=== PATIENT | female | born 2005 | race Caucasian/White ===

== ENCOUNTER 2025-01-28 14:28 | Emergency (ER) | payer BC, SELFPAY ==
[2025-01-28] VITALS (7 sets, daily range): BP systolic 100–126; BP diastolic 67–90; PULSE 109–123; RESP 20–30; TEMP 36.9–37.2; O2SAT 96–99; BMI 17.2; BMI 16.4
--- NOTE | ~2025-01-28 | CT_ITS ---
CLINICAL HISTORY: sob Exam: Contrast-enhanced chest CT pulmonary angiogram with multiplanar reformats. Comparison: None. Findings: There is no pulmonary embolism or thoracic aortic dissection. Right-sided subcarinal nodes measuring up to 13 mm AP dimension (8; 196) are likely reactive. Mildly prominent right hilar nodes measuring up to 10 mm AP dimension (8; 224) are likely reactive as well. No other mediastinal or hilar masses or adenopathy. No pleural or pericardial effusions. Images below diaphragms reveal no acute abnormalities. Lungs reveal patchy right lower lobe consolidative opacity with multifocal lucencies (for example, 10; 99), suggesting some underlying bronchiectasis although differential considerations would include coalescing multifocal cavitary lesions which appear less likely. Findings most compatible with right lower lobe pneumonia. There are lesser patchy right lower lobe ground-glass and centrilobular opacities as well. Hyperenhancement of the posteromedial aspect of the right lower lobe compared with the more lateral aspect of the right lower lobe (8; 344), could suggest necrotizing pneumonia. There are minimal scattered patchy centrilobular ground-glass opacities within right upper lobe (10; 39), also suggesting mild aspiration or developing right upper lobe pneumonia as well. No other dori consolidation or pulmonary parenchymal lesions. Airways are patent. No pneumothorax. Osseous structures reveal no destructive osseous lesions. Impression: 1. No pulmonary embolism or aortic dissection. 2. Dense consolidative opacity within right lower lobe with some areas of hyperenhancement, suggesting pneumonia and worrisome for necrotizing pneumonia. Multifocal lucencies within the right lower lobe consolidation could be related to bronchiectasis versus multifocal areas of cavitation within right lower lobe. There are lesser right upper lobe centrilobular opacities concerning for pneumonia or mild right upper lobe aspiration. This document has been electronically signed by: Edouard Da Silva MD on 01/28/2025 17:58:15
--- NOTE | ~2025-01-28 | XR_ITS ---
CLINICAL HISTORY: dyspnea 1 view chest x-ray. Comparison: None Findings: Lungs reveal medial right lung base consolidation. No other consolidation or pleural effusions. Cardiac and mediastinal contours appear unremarkable. Bones unremarkable. Impression: 1. Medial right lung base consolidation/pneumonia. This document has been electronically signed by: Edouard Da Silva MD on 01/28/2025 15:30:27
--- OUTSIDE RECORDS SUMMARY | 2025-01-28 14:23 | XMS_ITS | Encounter Summary ---
Author Organization [facility] Address [address] [place] [id number] Phone Care Team Providers Care Diagnostic Technologist Name Role Phone Karolyn Almanza MD Primary Care Provider [phone] Reason for Visit * Reason Comments ED Admission Encounter Details Date Type Department Care Team (Yoel st Contact Info) Description 01/28/2025 2:23 PM EST - Present Emergency - Patient Ping Social History Tobacco Use Types Packs/Day Years Used Date Smoking Tobacco: Never Smokeless Tobacco: Never Alcohol Use Standard Drinks/Week Comments Never 0 (1 standard drink = 0.6 oz pur e alcohol) Hunger/Food Answer Date Recorded In the last 12 months, did y ou or your family ever eat less than you felt you should because there wasn't enough money for food? No 09/22/2023 Stable Housing Answer Date Recorded Are you worried that in the next 2 months you may not have stable housing? No 09/22/2023 Transportation Concerns Answer Date Rec orded In the last 12 months, have you or your family ever had to go without healthcare because you didn't have a way to get there? No 09/22/2023 Hazards in Home Answer Date Recorded Think about the place you li ve. Do you have problems with any of the following? Pests (mice or roaches), mold, no/not working smoke detectors, water leaks, no window guards. No 2023 Financing Utilities Answer Date Recorde d In the last 12 months, has t he electric, gas, oil, or water company threatened to shut off your services in your home? No 09/22/2023 Safety at Home Answer Date Recorded Are you or your family worried about feeling saf e in your home? No 09/22/2023 Outside Support Answer Date Recorded Do you feel that you need mo re support from other people or programs to help you care for yourself or your family? No 09/22/2023 Understanding Health Concerns Answer Da te Recorded Do you need help understandi ng your or your child's healthcare needs (diagnosis, medications, plan, etc.)? No 09/22/2023 Financing Health Concerns Answer Date R ecorded In the last 12 months, was t here a time when your child needed to see a doctor or get medications or supplies but could not because of cost? No 09/22/2023 Missing School or Work Answer Date Romaine rded Did you or your child miss s chool or work because of a health problem that could have been avoided? No 09/22/2023 Child Education Answer Date Recorded Do you have concerns about y our/your child's learning or behavior in school, preschool, or daycare? No 09/22/2023 Comments No Sex and Gender Information Value Date Recorded Sex Assigned at Female 09/22/2023 8:31 AM EDT Legal Sex Female 5:08 PM EDT Gender Identity Female 09/22/2023 8:31 AM EDT Sexual Orientation Straight 09/22/2023 8: 31 AM EDT documented as of this encounter Plan of Treatment Not on file documented as of this encounter Visit Diagnoses Not on filedocumented in this encounter Care Teams Diagnostic Technologist Relationship Specialty Start Date End Date Karolyn Almanza MD [address] [place] [address] PCP - General Pediatrics 11/24/19 documented as of this encounter
--- NOTE | 2025-01-28 15:22 | ECG_ITS ---
Test Reason : tachy Blood Pressure : */* mmHG Vent. Rate : 110 BPM Atrial Rate : 110 BPM P-R Int : 306 ms QRS Dur : 100 ms QT Int : 238 ms P-R-T Axes : 68 52 251 degrees QTcB Int : 322 ms Sinus tachycardia with 1st degree A-V block Right atrial enlargement Marked ST abnormality, possible inferior subendocardial injury Marked ST abnormality, possible anterolateral subendocardial injury Consider electrolyte imbalance. Abnormal ECG No previous ECGs available Referred By: Generic ED Physician Electronically Signed By: Juan Ramon
[2025-01-28 15:41] LABS: Magnesium 2.5 mg/dL (1.6-2.6)
[2025-01-28 15:42] LABS: Hematocrit 41.7 % (37.0-47.0); Hemoglobin 15.5 g/dl (12.0-16.0); Mean Corpuscular HGB Conc 37.2 g/dl (31.0-35.0); Mean Corpuscular Hemoglobin 32.8 pg (27.0-33.0); Mean Corpuscular Volume 88.2 fL (80.0-98.0); NRBC Abs Auto 0.030 X10*3/uL (0.0-0.012); NRBC Pct Auto 0.1 /100WBC (0.0-0.2); Platelet Count 653 X10*3/uL (160-400); Red Blood Count 4.73 X10*6/uL (4.20-5.50)
[2025-01-28 15:47] LABS: WBC ABN SCTR FOR CBC 1
[2025-01-28 15:50] LABS: White Blood Count 34.5 X10*3/uL (4.8-10.8)
--- NOTE | 2025-01-28 15:56 | ED.GENADULT ---
HPI - General Adult General Chief complaint: Dyspnea Stated complaint: coming from , diff breathing, cough x5 days Time Seen by Provider: 01/28/25 15:08 Source: patient and family Mode of arrival: ambulatory Limitations: no limitations History of Present Illness ED Provider: DENNY Vale HPI narrative: Chief Complaint: ?I feel really tired and short of breath.? History of Present Illness: The patient is a 19-year-old female who reports five days of increasing fatigue, malaise, diffuse myalgias, and shortness of breath. She notes markedly decreased oral intake and states, ?I haven?t been able to eat or drink much.? Her roommate was recently diagnosed with pneumonia. Over the last day she has been unable to ambulate due to profound weakness and required wheelchair assistance on arrival. She denies any known past medical history. No alcohol, tobacco, or illicit drug use. She was told to come here by Urgent Care Related Data Allergies Allergy/AdvReac Type Severity Reaction Status Date / Time No Known Allergies Allergy Verified 01/28/25 14:48 Review of Systems Review of Systems: Yes all other systems are reviewed and are negative [facility] Past Medical History Attestation statement: The following information was validated with the patient. Source: old records reviewed and nursing notes reviewed Social History Social History Smoked in Last 30 Days: No Use of substances other than those prescribed or required for medical reasons: No Advance Directives: No Advance Directives Information Provided: No Physical Exam ED Exam Exam: Appearance: Alert.? Oriented X3.? Ill appearing Head: Normocephalic, atraumatic, no step-offs or deformities Eyes: Pupils equal, round and reactive to light.? ENT: Pharynx normal.?+ Dry oropharynx Neck: Normal inspection.? Neck supple.? CVS: Rapid rate w/ normal rythem ? sinus tach around 110 bpm.? Pulses normal.? Respiratory: + mild resp distress.? Breath sounds w/ crackles to RLL. Coughing intermittently dry cough ? Abdomen: Soft and nontender.? Skin: Skin warm and dry.? Pale skin color & mucus membranes pale.? Normal skin turgor.? Extremities: No lower extremity edema.? No calf ttp. Global weakness. Back: No midline tenderness, no C-spine tenderness, full range of motion, no CVA tenderness bilaterally Neuro: Oriented X 3.? No motor deficit.? No sensory deficit. CN 2-12 intact Vital Signs: Vital Signs - 24 hr 01/28/25 14:46 01/28/25 15:27 01/28/25 16:37 Temperature 98.9 F 98.4 F Pulse Rate 114 H 112 H 112 H Respiratory Rate 20 20 24 H Blood Pressure 118/79 121/78 118/73 Pulse Oximetry 97 96 97 Oxygen Delivery Method Room Air Room Air Room Air 01/28/25 17:26 01/28/25 18:02 01/28/25 19:53 Temperature 98.4 F Pulse Rate 113 H 123 H 109 H Respiratory Rate 26 H 30 H 24 H Blood Pressure 118/80 100/67 110/67 Pulse Oximetry 99 97 97 Oxygen Delivery Method Room Air Room Air Room Air BMI result Body Mass Index 16.4 vss Course Reevaluation(s) Reevaluation #1: Patient's chest x-ray concerning for right middle lobe pneumonia she does have leukocytosis 34.5 with left shift and bandemia of 17% platelet count 653 likely in the setting of hemoconcentration poor p.o. intake and infection. Patient's chemistry with low sodium 129 she is receiving IV hydration potassium 2.4 IV potassium ordered as well as po. Random glucose 465 she is not diabetic per patient and motther. Will initially give fluids will also obtain a beta hydroxybutyrate as well as VBG to ensure that this patient is not in new onset diabetes with possible DKA At this time infection suspected blood cultures lactic acid ceftriaxone and azithromycin ordered. Time: 16:05 Reevaluation #2: Sepsis focused exam has been done Her labs are significantly concerning for diabetic ketoacidosis, I did start on insulin drip will repeat point of care will also give 5 units IV push. Also, will check magnesium before replacing potassium. Time: 16:55 Reevaluation #3: I called the lab multiple times as magnesium has been delayed. I explained to them this patient is very sick and I need values elmer. Still waiting for results. I am also concered for profund lactic acidosis with a nearly incompatible PH 6.8 and amp of bicarb ordered Time: 17:14 Additional Reevaluation(s): 1724 Lab tells me her value has been back for a while. Mag 2.5. Will begin K repletion prior to initiating insulin as her potassium level is critically low 1750 No ICU beds here at this times. 1808 Accepted to [facility]. Lundberg Recommendations as follows .1 units/kg/ hour --> order placed NS w/ 20 or 40 of K run it at 150 /hr w/ insulin drip. --> we will do NS w/ 20 meq in normal saline and rune it at 150/hr. Sugars q hour --> POC 378 at 1816 If glucose < 250 start D5 1840 Paient has been accepted at [facility]. Pending transpot and room assignment. My shift has come to an end. Dr. Mariee my attenidng to take over this case. Pending repeat imaging Medications Administered Discontinued Medications Generic Name Dose Route Start Last Admin Trade Name Freq PRN Reason Stop Dose Admin Sodium Chloride 1,360.77 mls @ 1,360.77 mls/hr 01/28/25 15:36 01/28/25 17:21 Ns 30 ml/kg infuse over 1 hr (1360.77 ml) 01/28/25 16:35 Infused IV Infusion .Q1H STA Ceftriaxone Sodium 1 gm/ 50 mls @ 100 mls/hr 01/28/25 15:36 01/28/25 17:11 Sodium Chloride IV 01/28/25 16:05 Infused ONCE ONE Infusion Azithromycin 500 mg/ Sodium 250 mls @ 125 mls/hr 01/28/25 16:03 01/28/25 18:33 Chloride IV 01/28/25 18:02 0 mls/hr ONCE ONE Infusion Potassium Chloride 10 meq in 100 mls @ 100 mls/hr 01/28/25 16:15 01/28/25 19:49 Potassium Chloride/H20 IV 01/28/25 18:14 Infused Q1H FAUSTINA Infusion Sodium Chloride 1,000 mls @ 999 mls/hr 01/28/25 17:15 01/28/25 19:23 Ns IV 01/28/25 18:15 Infused .Q1H1M [facility] Infusion Insulin Human Regular 100 unit in 100 mls @ 0 mls/hr 01/28/25 18:15 01/28/25 19:51 Myxredlin IVCONT 0 unit/hr .Q0M FAUSTINA 0 mls/hr Protocol Titration 0 UNIT/HR Iohexol 100 ml 01/28/25 16:57 01/28/25 17:01 Iohexol 350 Mg/Ml 100 Ml Infus..Btl IV 01/28/25 16:58 65 ml ONCE ONE Administration Potassium Chloride 40 meq 01/28/25 16:08 01/28/25 17:19 Potassium Chloride Packet 20 Meq Packet PO 01/28/25 16:09 40 meq ONCE ONE Administration Sodium Bicarbonate 50 meq 01/28/25 17:22 01/28/25 17:29 Sodium Bicarbonate 8.4% 50 Meq/50 Ml Syringe IVPUSH 01/28/25 17:23 50 meq ONCE ONE Administration Medical Decision Making Medical Decision Making [facility] Narrative: 0779 The patient is a 19-year-old female presenting with five days of progressive systemic symptoms, vital sign instability (tachycardia), focal pulmonary findings, and overall ill appearance concerning for sepsis likely secondary to right lower lobe pneumonia. Problem #1: Sepsis ? suspected Assessment: Meets sepsis alert criteria with tachycardia, ill appearance, and history of decreased oral intake; requires immediate evaluation. Plan: Sepsis alert activated. Obtain STAT blood cultures ?2, CBC, CMP, lactic acid. Problem #2: Right lower lobe pneumonia ? suspected Assessment: History of exposure (roommate with pneumonia), focal crackles RLL on exam, compatible symptoms. Plan: Chest X-ray to confirm infiltrate. Patient was put into RP temprarily after being brought by EMS due to capacity issues in the dept--> I do not feel like this is appropriate as she needs monitored room, asked for her to be put in the main ED given her presentation. Charge Candy aware and moved patient to monitored room upon request. I saw this patient with PA. Patient was in severe diabetic ketoacidosis likely from pneumonia. Patient's pH was extremely low. 6.8. Reluctantly we give a amp of bicarb. Patient also had extremely low potassium. We held back initially on giving insulin because patient's potassium was at 2.4 beta hydroxybutyrate was 8.25. After consultation with the ICU from [facility] after repletion with potassium started patient on insulin drip. Antibiotic was given. Patient to be transferred to the ICU at [facility]. Differential Diagnosis Differential Diagnoses: The differential diagnosis associated with the presentation includes Community-acquired pneumonia: Most likely diagnosis given recent exposure (roommate with pneumonia), focal right lower lobe crackles, and compatible systemic symptoms. Viral respiratory infection (e.g., influenza, COVID-19, EBV/CMV): Considered due to acute onset of fatigue, myalgias, and respiratory complaints; viral etiologies can present similarly. Sepsis of other origin (e.g., urinary tract, intra-abdominal): Systemic symptoms and tachycardia raise concern for sepsis; other infectious sources should be considered if initial workup is unrevealing. Acute myocarditis: Can present with fatigue, weakness, tachycardia, and respiratory symptoms; less likely but should be considered in the differential. Primary hematologic disorder (e.g., acute leukemia, severe anemia): Global weakness, pallor, and inability to ambulate may be seen in severe anemia or hematologic malignancy. Other causes of acute weakness (e.g., Guillain-Gtz? syndrome, myositis): Neuromuscular etiologies may present with profound weakness and inability to ambulate, though less likely given systemic findings. Pulmonary embolism: Less likely, but should be considered in the setting of tachycardia and hypoxia, especially if initial workup is unrevealing. Admission/Observation Consideration of admission/observation: Escalation of care including admission/observation considered Consult Healthcare Provider Management of the patient was discussed with: Sr Technical Sales Consultant (ICU closed to transfers due to capacity here [facility] ) Lab Data MDM Lab Attestation statement: I reviewed the patient's lab results. 01/28/25 15:22 01/28/25 15:22 Labs: Lab Results 01/28/25 01/28/25 01/28/25 Range/Units 15:20 15:22 16:18 WBC 34.5 H* (4.8-10.8) X10*3/uL RBC 4.73 (4.20-5.50) X10*6/uL Hgb 15.5 (12.0-16.0) g/dl Hct 41.7 (37.0-47.0) % MCV 88.2 (80.0-98.0) fL MCH 32.8 (27.0-33.0) pg MCHC 37.2 H (31.0-35.0) g/dl RDW 14.1 (11.0-16.0) % Plt Count 653 H (160-400) X10*3/uL MPV 8.9 L (9.4-12.3) fL Immature Gran % (Auto) Cancelled Neut % (Auto) Cancelled Lymph % (Auto) Cancelled [place] % (Auto) Cancelled Eos % (Auto) Cancelled Baso % (Auto) Cancelled Lymph # (Auto) Cancelled [place] # (Auto) Cancelled Eos # (Auto) Cancelled Baso # (Auto) Cancelled Abs Immat Gran (auto) Cancelled Absolute Neuts (auto) Cancelled Absolute Nucleated RBC 0.030 H (0.0-0.012) X10*3/uL Nucleated RBC % (auto) 0.1 (0.0-0.2) /100WBC Neutrophils % (Manual) 65 (45-73) % Band Neutrophils % 17 H (3-5) % Lymphocytes % (Manual) 7 L (20-40) % Atypical Lymphs % (Man) 2 (0-6) % Monocytes % (Manual) 6 (2-11) % Metamyelocytes % 3 % Abs Neuts (Manual) 28.3 H (2.0-8.3) X10*3/uL Lymphocytes # (Manual) 2.4 (1.2-4.9) X10*3/uL Atyp Lymphs # (Manual) 0.7 x10*3/uL Monocytes # (Manual) 2.1 H (0.1-1.2) X10*3/uL Metamyelocytes # 1.0 X10*3/uL Toxic Granulation PRESENT Toxic Vacuolation PRESENT Platelet Estimate INCREASED (NORMAL) Plt Morphology Comment NORMAL RBC Morphology NOTED Polychromasia 1+ (0-2) /OIF Tear Drop Cells 1+ (0-2) /OIF Yogi Cells 1+ (0-2) /OIF Hold Purple Top Hold Blue Top Cancelled VBG pH (7.32-7.43) VBG pCO2 mmHg VBG pO2 mmHg VBG HCO3 (22-26) mmol/L VBG O2 Saturation % VBG Base Excess mmol/L Sodium 129 L (135-145) mmol/L Potassium 2.4 L* (3.3-5.1) mmol/L Chloride 101 (96-108) mmol/L Carbon Dioxide < 5 L* (22-29) mmol/L Anion Gap TNP BUN 11 (9-16) mg/dL Creatinine 0.83 (0.5-1.4) mg/dL Estim Creat Clear Calc 78.0 Estimated GFR > 60 POC Glucose (60-115) mg/dL Random Glucose 465 H* (60-115) mg/dL Lactic Acid 3.1 H* (0.5-2.0) mmol/L Calcium 11.8 H (8.4-10.2) mg/dL Magnesium 2.5 (1.6-2.6) mg/dL Total Bilirubin 0.3 (0.0-1.0) mg/dL AST 18 (5-31) U/L ALT < 6 (0-31) U/L Alkaline Phosphatase 220 H (39-117) U/L Total Protein 8.8 H (6.5-8.0) g/dL Albumin 4.1 (3.5-5.0) g/dL Beta-Hydroxybutyrate (0.02-0.27) mmol/L Beta HCG, Quant < 2 mIU/mL Urine Color Urine Appearance Urine pH (5.0-9.0) Ur Specific [place] (1.005-1.025) Urine Protein (Neg-Trace) mg/dL Urine Glucose (UA) (Negative) mg/dL Urine Ketones (Negative) mg/dL Urine Blood (Negative) Urine Nitrite (Negative) Ur Leukocyte Esterase (Negative) Urine RBC (0-2) /HPF Urine WBC (0-5) /HPF Ur Squamous Epith Cells (0-2) /HPF Urine Bacteria (None Seen) Hyaline Casts (0-2) /LPF Urine Opiates Screen (Not Detect) Ur Buprenorphine Scrn (Not Detect) ng/mL Ur Oxycodone Screen (Not Detect) ng/mL Urine Methadone Screen (Not Detect) ng/mL Urine Fentanyl Screen (Not Detect) Ur Barbiturates Screen (Not Detect) Ur Phencyclidine Scrn (Not Detect) Ur Amphetamines Screen (Not Detect) U Benzodiazepines Scrn (Not Detect) Urine Cocaine Screen (Not Detect) U Marijuana (THC) Screen (Not Detect) Influenza Type A (PCR) NEGATIVE (Negative) Influenza Type B (PCR) NEGATIVE (Negative) RSV RNA Qual (PCR) NEGATIVE (Negative) SARS-CoV-2 RNA (RT-PCR) NEGATIVE (Negative) 01/28/25 01/28/25 01/28/25 Range/Units 16:27 16:28 16:36 WBC (4.8-10.8) X10*3/uL RBC (4.20-5.50) X10*6/uL Hgb (12.0-16.0) g/dl Hct (37.0-47.0) % MCV (80.0-98.0) fL MCH (27.0-33.0) pg MCHC (31.0-35.0) g/dl RDW (11.0-16.0) % Plt Count (160-400) X10*3/uL MPV (9.4-12.3) fL Immature Gran % (Auto) Neut % (Auto) Lymph % (Auto) [place] % (Auto) Eos % (Auto) Baso % (Auto) Lymph # (Auto) [place] # (Auto) Eos # (Auto) Baso # (Auto) Abs Immat Gran (auto) Absolute Neuts (auto) Absolute Nucleated RBC (0.0-0.012) X10*3/uL Nucleated RBC % (auto) (0.0-0.2) /100WBC Neutrophils % (Manual) (45-73) % Band Neutrophils % (3-5) % Lymphocytes % (Manual) (20-40) % Atypical Lymphs % (Man) (0-6) % Monocytes % (Manual) (2-11) % Metamyelocytes % % Abs Neuts (Manual) (2.0-8.3) X10*3/uL Lymphocytes # (Manual) (1.2-4.9) X10*3/uL Atyp Lymphs # (Manual) x10*3/uL Monocytes # (Manual) (0.1-1.2) X10*3/uL Metamyelocytes # X10*3/uL Toxic Granulation Toxic Vacuolation Platelet Estimate (NORMAL) Plt Morphology Comment RBC Morphology Polychromasia /OIF Tear Drop Cells /OIF [place] Cells /OIF Hold Purple Top SEE NOTE Hold Blue Top VBG pH 6.83 L* (7.32-7.43) VBG pCO2 23 mmHg VBG pO2 46 mmHg VBG HCO3 4 L (22-26) mmol/L VBG O2 Saturation 66.0 % VBG Base Excess -29.0 mmol/L Sodium (135-145) mmol/L Potassium (3.3-5.1) mmol/L Chloride (96-108) mmol/L Carbon Dioxide (22-29) mmol/L Anion Gap BUN (9-16) mg/dL Creatinine (0.5-1.4) mg/dL Estim Creat Clear Calc Estimated GFR POC Glucose (60-115) mg/dL Random Glucose (60-115) mg/dL Lactic Acid (0.5-2.0) mmol/L Calcium (8.4-10.2) mg/dL Magnesium (1.6-2.6) mg/dL Total Bilirubin (0.0-1.0) mg/dL AST (5-31) U/L ALT (0-31) U/L Alkaline Phosphatase (39-117) U/L Total Protein (6.5-8.0) g/dL Albumin (3.5-5.0) g/dL Beta-Hydroxybutyrate 8.25 H (0.02-0.27) mmol/L Beta HCG, Quant mIU/mL Urine Color Urine Appearance Urine pH (5.0-9.0) Ur Specific [place] (1.005-1.025) Urine Protein (Neg-Trace) mg/dL Urine Glucose (UA) (Negative) mg/dL Urine Ketones (Negative) mg/dL Urine Blood (Negative) Urine Nitrite (Negative) Ur Leukocyte Esterase (Negative) Urine RBC (0-2) /HPF Urine WBC (0-5) /HPF Ur Squamous Epith Cells (0-2) /HPF Urine Bacteria (None Seen) Hyaline Casts (0-2) /LPF Urine Opiates Screen (Not Detect) Ur Buprenorphine Scrn (Not Detect) ng/mL Ur Oxycodone Screen (Not Detect) ng/mL Urine Methadone Screen (Not Detect) ng/mL Urine Fentanyl Screen (Not Detect) Ur Barbiturates Screen (Not Detect) Ur Phencyclidine Scrn (Not Detect) Ur Amphetamines Screen (Not Detect) U Benzodiazepines Scrn (Not Detect) Urine Cocaine Screen (Not Detect) U Marijuana (THC) Screen (Not Detect) Influenza Type A (PCR) (Negative) Influenza Type B (PCR) (Negative) RSV RNA Qual (PCR) (Negative) SARS-CoV-2 RNA (RT-PCR) (Negative) 01/28/25 01/28/25 01/28/25 Range/Units 16:57 17:33 18:14 WBC (4.8-10.8) X10*3/uL RBC (4.20-5.50) X10*6/uL Hgb (12.0-16.0) g/dl Hct (37.0-47.0) % MCV (80.0-98.0) fL MCH (27.0-33.0) pg MCHC (31.0-35.0) g/dl RDW (11.0-16.0) % Plt Count (160-400) X10*3/uL MPV (9.4-12.3) fL Immature Gran % (Auto) Neut % (Auto) Lymph % (Auto) [place] % (Auto) Eos % (Auto) Baso % (Auto) Lymph # (Auto) [place] # (Auto) Eos # (Auto) Baso # (Auto) Abs Immat Gran (auto) Absolute Neuts (auto) Absolute Nucleated RBC (0.0-0.012) X10*3/uL Nucleated RBC % (auto) (0.0-0.2) /100WBC Neutrophils % (Manual) (45-73) % Band Neutrophils % (3-5) % Lymphocytes % (Manual) (20-40) % Atypical Lymphs % (Man) (0-6) % Monocytes % (Manual) (2-11) % Metamyelocytes % % Abs Neuts (Manual) (2.0-8.3) X10*3/uL Lymphocytes # (Manual) (1.2-4.9) X10*3/uL Atyp Lymphs # (Manual) x10*3/uL Monocytes # (Manual) (0.1-1.2) X10*3/uL Metamyelocytes # X10*3/uL Toxic Granulation Toxic Vacuolation Platelet Estimate (NORMAL) Plt Morphology Comment RBC Morphology Polychromasia /OIF Tear Drop Cells /OIF Yogi Cells /OIF Hold Purple Top Hold Blue Top VBG pH (7.32-7.43) VBG pCO2 mmHg VBG pO2 mmHg VBG HCO3 (22-26) mmol/L VBG O2 Saturation % VBG Base Excess mmol/L Sodium (135-145) mmol/L Potassium (3.3-5.1) mmol/L Chloride (96-108) mmol/L Carbon Dioxide (22-29) mmol/L Anion Gap BUN (9-16) mg/dL Creatinine (0.5-1.4) mg/dL Estim Creat Clear Calc Estimated GFR POC Glucose 377 H* 378 H* (60-115) mg/dL Random Glucose (60-115) mg/dL Lactic Acid (0.5-2.0) mmol/L Calcium (8.4-10.2) mg/dL Magnesium (1.6-2.6) mg/dL Total Bilirubin (0.0-1.0) mg/dL AST (5-31) U/L ALT (0-31) U/L Alkaline Phosphatase (39-117) U/L Total Protein (6.5-8.0) g/dL Albumin (3.5-5.0) g/dL Beta-Hydroxybutyrate (0.02-0.27) mmol/L Beta HCG, Quant mIU/mL Urine Color Yellow Urine Appearance Cloudy Urine pH 5.5 (5.0-9.0) Ur Specific [place] 1.020 (1.005-1.025) Urine Protein 100 (2+) H (Neg-Trace) mg/dL Urine Glucose (UA) >=1000 H (Negative) mg/dL Urine Ketones 80 (Negative) mg/dL Urine Blood Trace H (Negative) Urine Nitrite Negative (Negative) Ur Leukocyte Esterase Negative (Negative) Urine RBC 3-5 H (0-2) /HPF Urine WBC 0-5 (0-5) /HPF Ur Squamous Epith Cells 3-5 (0-2) /HPF Urine Bacteria 3+ (None Seen) Hyaline Casts 11-20 (0-2) /LPF Urine Opiates Screen Not Detected (Not Detect) Ur Buprenorphine Scrn Not Detected (Not Detect) ng/mL Ur Oxycodone Screen Not Detected (Not Detect) ng/mL Urine Methadone Screen Not Detected (Not Detect) ng/mL Urine Fentanyl Screen Not Detected (Not Detect) Ur Barbiturates Screen Not Detected (Not Detect) Ur Phencyclidine Scrn Not Detected (Not Detect) Ur Amphetamines Screen Not Detected (Not Detect) U Benzodiazepines Scrn Not Detected (Not Detect) Urine Cocaine Screen Not Detected (Not Detect) U Marijuana (THC) Screen Not Detected (Not Detect) Influenza Type A (PCR) (Negative) Influenza Type B (PCR) (Negative) RSV RNA Qual (PCR) (Negative) SARS-CoV-2 RNA (RT-PCR) (Negative) 12/14/25 12/14/25 Range/Units 19:07 19:20 WBC (4.8-10.8) X10*3/uL RBC (4.20-5.50) X10*6/uL Hgb (12.0-16.0) g/dl Hct (37.0-47.0) % MCV (80.0-98.0) fL MCH (27.0-33.0) pg MCHC (31.0-35.0) g/dl RDW (11.0-16.0) % Plt Count (160-400) X10*3/uL MPV (9.4-12.3) fL Immature Gran % (Auto) Neut % (Auto) Lymph % (Auto) [place] % (Auto) Eos % (Auto) Baso % (Auto) Lymph # (Auto) [place] # (Auto) Eos # (Auto) Baso # (Auto) Abs Immat Gran (auto) Absolute Neuts (auto) Absolute Nucleated RBC (0.0-0.012) X10*3/uL Nucleated RBC % (auto) (0.0-0.2) /100WBC Neutrophils % (Manual) (45-73) % Band Neutrophils % (3-5) % Lymphocytes % (Manual) (20-40) % Atypical Lymphs % (Man) (0-6) % Monocytes % (Manual) (2-11) % Metamyelocytes % % Abs Neuts (Manual) (2.0-8.3) X10*3/uL Lymphocytes # (Manual) (1.2-4.9) X10*3/uL Atyp Lymphs # (Manual) x10*3/uL Monocytes # (Manual) (0.1-1.2) X10*3/uL Metamyelocytes # X10*3/uL Toxic Granulation Toxic Vacuolation Platelet Estimate (NORMAL) Plt Morphology Comment RBC Morphology Polychromasia /OIF Tear Drop Cells /OIF Yogi Cells /OIF Hold Purple Top Hold Blue Top VBG pH (7.32-7.43) VBG pCO2 mmHg VBG pO2 mmHg VBG HCO3 (22-26) mmol/L VBG O2 Saturation % VBG Base Excess mmol/L Sodium Cancelled (135-145) mmol/L Potassium Cancelled (3.3-5.1) mmol/L Chloride Cancelled (96-108) mmol/L Carbon Dioxide Cancelled (22-29) mmol/L Anion Gap Cancelled BUN Cancelled (9-16) mg/dL Creatinine Cancelled (0.5-1.4) mg/dL Estim Creat Clear Calc Cancelled Estimated GFR Cancelled POC Glucose 320 H (60-115) mg/dL Random Glucose Cancelled (60-115) mg/dL Lactic Acid (0.5-2.0) mmol/L Calcium Cancelled (8.4-10.2) mg/dL Magnesium (1.6-2.6) mg/dL Total Bilirubin Cancelled (0.0-1.0) mg/dL AST Cancelled (5-31) U/L ALT Cancelled (0-31) U/L Alkaline Phosphatase Cancelled (39-117) U/L Total Protein Cancelled (6.5-8.0) g/dL Albumin Cancelled (3.5-5.0) g/dL Beta-Hydroxybutyrate (0.02-0.27) mmol/L Beta HCG, Quant mIU/mL Urine Color Urine Appearance Urine pH (5.0-9.0) Ur Specific [place] (1.005-1.025) Urine Protein (Neg-Trace) mg/dL Urine Glucose (UA) (Negative) mg/dL Urine Ketones (Negative) mg/dL Urine Blood (Negative) Urine Nitrite (Negative) Ur Leukocyte Esterase (Negative) Urine RBC (0-2) /HPF Urine WBC (0-5) /HPF Ur Squamous Epith Cells (0-2) /HPF Urine Bacteria (None Seen) Hyaline Casts (0-2) /LPF Urine Opiates Screen (Not Detect) Ur Buprenorphine Scrn (Not Detect) ng/mL Ur Oxycodone Screen (Not Detect) ng/mL Urine Methadone Screen (Not Detect) ng/mL Urine Fentanyl Screen (Not Detect) Ur Barbiturates Screen (Not Detect) Ur Phencyclidine Scrn (Not Detect) Ur Amphetamines Screen (Not Detect) U Benzodiazepines Scrn (Not Detect) Urine Cocaine Screen (Not Detect) U Marijuana (THC) Screen (Not Detect) Influenza Type A (PCR) (Negative) Influenza Type B (PCR) (Negative) RSV RNA Qual (PCR) (Negative) SARS-CoV-2 RNA (RT-PCR) (Negative) Independent Interpretation I performed an independent interpretation of an: Plain X-Ray (Sinus tachycardia with 1st degree A-V block Right atrial enlargement Marked ST abnormality, possible inferior subendocardial injury Marked ST abnormality, possible anterolateral subendocardial injury Abnormal ECG No previous ECGs available) and CT Scan Interpretation: Impression: 1. No pulmonary embolism or aortic dissection. 2. Dense consolidative opacity within right lower lobe with some areas of hyperenhancement, suggesting pneumonia and worrisome for necrotizing pneumonia. Multifocal lucencies within the right lower lobe consolidation could be related to bronchiectasis versus multifocal areas of cavitation within right lower lobe. There are lesser right upper lobe centrilobular opacities concerning for pneumonia or mild right upper lobe aspiration. Radiology Impression Discussion of test interpretation with radiology: I have reviewed the radiologist's reading. Independent Historian Clinical information obtained from an independent historian. History obtained from or confirmed by: Parent External Record Review External record reviewed: Inpatient record, Office record, Outpatient record, Prior outpatient labs, Prior outpatient radiology, Primary care record and Outside ED record Chronic Conditions Patient?s care impacted by: Other (Denies ) Critical Care Time Critical Care Time Critical Care Time: Yes Total Critical Care Time: 45 Attestation: I attest to this time spent taking care of the patient, obtaining history, physical, reviewing labs, imaging, treatment of patients condition +/- specialist/hospitalist consult +/- procedure Discharge Plan Discharge Clinical Impression: DKA (diabetic ketoacidosis), Necrotizing pneumonia, Acidosis, lactic, UTI (urinary tract infection) Patient Disposition: Xfer Acute Care Hospital Transfer Details: Spoke to Dr. Lundberg Pediatric ICU Interventions: Acute Care Transfer Worksheet (ED) Last Done: 01/28/25 19:53 Discharge Date/Time: 01/28/25 19:55 Print Language: Ivorian
[2025-01-28 16:02] LABS: Neutrophils Percent Manual 65 % (45-73)
[2025-01-28 16:03] LABS: Alanine Aminotransferase < 6 U/L (0-31); Albumin Level 4.1 g/dL (3.5-5.0); Alkaline Phosphatase 220 U/L (39-117); Aspartate Amino Transferase 18 U/L (5-31); Blood Urea Nitrogen 11 mg/dL (9-16); Calcium 11.8 mg/dL (8.4-10.2); Carbon Dioxide < 5 mmol/L (22-29); Chloride 101 mmol/L (96-108); Creatinine Clr Calc Pharmacy 78.0; Estimated Glomerular Filt Rate > 60; Potassium 2.4 mmol/L (3.3-5.1); Resp Syncy Virus RNA Qual PCR NEGATIVE (Negative); SARS COV2 PCR INHOUSE NEGATIVE (Negative); Sodium 129 mmol/L (135-145); Total Protein 8.8 g/dL (6.5-8.0)
[2025-01-28 16:04] LABS: Atypical Lymph Absolute Manual 0.7 x10*3/uL; Atypical Lymphs Percent Manual 2 % (0-6); Band Neutrophils Percent 17 % (3-5); Lymphocytes Absolute Manual 2.4 X10*3/uL (1.2-4.9); Lymphocytes Percent Manual 7 % (20-40); Metamyelocytes Absolute 1.0 X10*3/uL; Metamyelocytes Percent 3 %; Monocytes Absolute Manual 2.1 X10*3/uL (0.1-1.2); Monocytes Percent Manual 6 % (2-11); Neutrophils Absolute Manual 28.3 X10*3/uL (2.0-8.3)
[2025-01-28 16:07] LABS: RBC Morphology NOTED
[2025-01-28 16:08] LABS: Burr Cells 1+ (0-2) /OIF; Polychromasia 1+ (0-2) /OIF; Toxic Granulation PRESENT; Toxic Vacuolation PRESENT
[2025-01-28 16:09] LABS: Tear Drop Cells 1+ (0-2) /OIF
[2025-01-28] MEDS: 0.9 % Sodium Chloride 1,360.77 ML 1360.77 ML IV (16:19)
--- NOTE | 2025-01-28 16:26 | PC.NURSE ---
re: delay in obtaining lactic and cultures: Pt arrived to dept via EMS temporarily placed in pending exam room availability, 20g IV access obtained and basic labs were obtained per protocol. Upon provider initial eval sepsis protocol initiated. pt has very poor venous access requiring multiple nurses and technicians to attempt draw. 1st set of cultures and lactic obtained Sepsis fluid bolus and IV abx initiated. Per DENNY Lovell pt to be moved to ED bed 6 report given to ALVARO Turner
--- NOTE | 2025-01-28 16:31 | PC.NURSE ---
Addendum entered by Bonny Barry RN 01/28/25 16:36: Provider request to move patient to room the main dept, t/w informed while inserting patient's second line. Original Note: Please see Regina ALCAZAR note for details prior to this RN's arrival. Initial lab work completed by Regina / Trinity EDT. Pt deemed critical enough for second IV access / difficult lab draw, t/w asked to look for additional IV access. 2nd 20 R AC established, additional lab work drawn from IV insertion. Nurse report given to new primary RN Abby by Regina as t/w was not present during patient's initial presentation/ beginning of work up.
[2025-01-28 16:41] LABS: Venous Blood Gas Refer to POC result
[2025-01-28 16:42] LABS: VBG HCO3 4 mmol/L (22-26); VBG O2 % Saturation 66.0 %
--- OUTSIDE RECORDS SUMMARY | 2025-01-28 16:50 | XMS_ITS | Clinical Summary ---
Author Organization [facility] Address [address] [place] [id number] Phone Care Team Providers Care Mix House Operator Name Role Phone Karolyn Almanza MD Primary Care Provider [phone] Allergies No known active allergies Medications No known medications Active Problems Problem Noted Date Diagnosed Date Influenza vaccination declined 12/06/2019 Assessment & Plan (12/29/2021 1:07 PM EST): Underimmunized 11/01/2019 Overview (09/22/2023): Declines gardasil & Men B vaccines Assessment & Plan (12/29/2021 1:07 PM EST): Mother consents to giving meningitis vaccine today. Declines gardasil, flu, covid-19. Aware she may return at any time to receive these recommended vaccines. Assessment & Plan (12/07/2020 8:10 AM EDT): Discussed and recommended menactra, gardasil, and covid-19 vaccines. Mother declines. Resolved Problems Problem Noted Date Diagnosed Date Resolved Date Health care maintenance 11/01/2019 08/0 08/2023 Overview (11/01/2019): Due for flu vaccine. Constipation 09/21/2011 10/27/2018 Encounters Date Type Department Care Team Description 01/28/2025 2:23 PM EST - Present Emergency [facility] - Patient Ping from Last 3 Months Immunizations Immunization Administration Dates Next Due DTaP 08/13/2009 DTaP / Hep B / IPV 2005,2005, 006 DTaP 5 08/23/2006 Hep A, ped/adol 06/13/2007,06/07/2006 Hep B, ped/adol 2005 Hib (HbOC) 08/23/2006 Hib (PRP-T) 2005,2005,2005 IPV 08/13/2009 Influenza Split 12/03/2011,11/05/2010,11/11/2009 Influenza, injectable, quadrivalent 12/08/2014 Influenza, injectable, quadr ivalent, preservative free 12/06/2020,02/04/2020,11/01/2015,12/09,12/12/2012 Influenza, injectable, trivalent 009,11/22/2007,11/24/2006,01/19,2005 MMR 08/13/2009 MMRV 06/07/2006 Meningococcal Conj (Menquadfi) [id number] 12/29/2021 Pneumococcal Conjugate 08/23/2006,2005,2005,07/21 Tdap 09/30/2016 Varicella 08/13/2009 Family History Medical History Relation Name Comments No Known Problems Father Teresita Jaeger No Known Problems Mother Micah Jaeger PDD Sister [place] Jaeger Relation Name Status Comments Father Teresita Jaeger Alive Father: Alive and well Mother Micah Jaeger Alive Mother: Aliv e and well Other 1 Other No family histo ry of Deafness, No family history of ADD/ADHD, No family history of Asthma, No family history of Developmental dislocation of hip, No family history of Strabismus, Family history of cancer, Family history of Diabetes mellitus, No family hi Other 2 No family histo ry of Deafness, No family history of ADD/ADHD, No family history of Asthma, No family history of Developmental dislocation of hip, No family history of Strabismus, Family history of cancer, Family history of Diabetes mellitus, No family history of Seizure disorder, No family history of Obesity, No family history of Migraines Sister [place] Jaeger Alive Sister: Alive and well Social History Tobacco Use Types Packs/Day Years Used Date Smoking Tobacco: Never Smokeless Tobacco: Never Tobacco Cessation:Counseling Given: Not Answered Alcohol Use Standard Drinks/Week Comments Never 0 [...] Orientation Straight 09/22/2023 8: 31 AM EDT Last Filed Vital Signs Vital Sign Reading Time Taken Comments Blood Pressure 101/63 09/22/2023 8:36 AM EDT Pulse 110 09/22/2023 8:36 AM EDT Temperature 36.3 C (97.4 F) 12/29/2021 10:39 AM EST Respiratory Rate - - Oxygen Saturation - - Inhaled Oxygen Concentration - - Weight 43.5 kg (96 lb) 09/22/2023 9:18 AM EDT Height 163.2 cm (5' 4.25 ) 09/22/2023 8:36 AM ED T Body Mass Index 16.35 09/22/2023 8:36 AM EDT Body Mass Index Percentile 0.59% 09/22/2023 9:1 8 AM EDT Growth Chart: [facility] (Girls, 2- 20 Years) Plan of Treatment Health Maintenance Due Date Last Done Comments HPV Vaccines (1 - 3-dose series) 2020 Men B Vaccine (1 of 2 - Standard) 2021 Chlamydia and Gonorrhea Screening 02/16/2024 Influenza Vaccines (#1) 2024 12/07/19 21, 02/04/2020, 11/01/2015, Additional history exists COVID-19 Vaccine ( - 2024-2 6 season) 2024 DTaP,Tdap,and Td Vaccines (7 - Td or Tdap) 09/30/2026 09/30/2016, 08/13/2009, 08/23/2006, Additional history exists Hepatitis B Vaccines Completed 2005, 2005, 2005, Additional history exists HIB Vaccines Completed 08/23/2006, 11/15, 2005, Additional history exists Pneumococcal Vaccine Completed 08/23/2006, 2005, 2005, Additional history exists Hepatitis A Vaccines Completed 06/13/2007, 06/08/19 07 IPV Vaccines Completed 08/13/2009, 11/15, 2005, Additional history exists MMR Vaccines Completed 08/13/2009, 06/07/2006 Varicella Vaccines Completed 08/13/2009, 06/07/2006 Meningococcal Vaccine Completed 12/29/2021 Insurance [facility] PPO Care Teams Mix House Operator Relationship Specialty Start Date End Date Karolyn Almanza MD [address] [place] [address] [place] [id number] PCP - General Pediatrics 11/24/19
--- OUTSIDE RECORDS SUMMARY | 2025-01-28 16:50 | XMS_ITS | Encounter Summary ---
Author Organization [facility] Address [address] [place] [id number] Phone Care Team Providers Care Weigher And Grader Name Role Phone Karolyn Almanza MD Primary Care Provider [phone] Encounter Details Date Type Department Care Team (Late st Contact Info) Description 10/28/2010 Documentation [facility] [place] Family Medicine [address] [place] [address] Family Medicine, Physician [address], [place] [id number] Social History Tobacco Use Types Packs/Day Years Used Date Smoking Tobacco: Never Assessed Comments Unknown Sex and Gender Information Value Date Recorded Sex Assigned at Female 09/22/2023 8:31 AM EDT Legal Sex Female 5:08 PM EDT Gender Identity Female 09/22/2023 8:31 AM EDT Sexual Orientation Straight 09/22/2023 8: 31 AM EDT documented as of this encounter Plan of Treatment Not on file documented as of this encounter Visit Diagnoses Not on filedocumented in this encounter Care Teams Weigher And Grader Relationship Specialty Start Date End Date Karolyn Alamnza MD [address] [place] [address] [place] [address] PCP - General Pediatrics 11/24/19 documented as of this encounter
--- OUTSIDE RECORDS SUMMARY | 2025-01-28 16:50 | XMS_ITS | Encounter Summary ---
Author Organization [facility] Address [address] [place] [address] Phone Care Team Providers Care Radiation Oncology Nurse Name Role Phone Karolyn Almanza MD Primary Care Provider [phone] Encounter Details Date Type Department Care Team (Late st Contact Info) Description 04/23/2009 Documentation [facility] [place] Family Medicine [address] [place] [address] Family Medicine, Physician [address], [place] [id number] Social History Tobacco Use Types Packs/Day Years [...] on filedocumented in this encounter Care Teams Radiation Oncology Nurse Relationship Specialty Start Date End Date Karolyn Almanza MD [address] [place] [address] [place] [address] PCP - General Pediatrics 11/24/19 documented as of this encounter
--- OUTSIDE RECORDS SUMMARY | 2025-01-28 16:50 | XMS_ITS | Encounter Summary ---
Author Organization [facility] Address [address] [place] [phone] Phone Care Team Providers Care Information Consultant Name Role Phone Karolyn Almanza MD Primary Care Provider Encounter Details Date Type Department Care Team (Late st Contact Info) Description 10/01/2016 Conversion Encounter [facility] [place] [address] [place] [address] Social History Tobacco Use Types Packs/Day Years [...] on filedocumented in this encounter Care Teams Information Consultant Relationship Specialty Start Date End Date Karolyn Almanza MD [address] [place] [address] PCP - General Pediatrics 11/24/19 documented as of this encounter
[2025-01-28] MEDS: iohexoL 350 MG/ML 100 ML INFUS..BTL IV (17:01)
[2025-01-28 17:02] LABS: Glucose, Whole Blood 377 mg/dL (60-115)
[2025-01-28] MEDS: Potassium Chloride/H20 10 MEQ/100 ML PIGGYBACK 100 MEQ IV ×2 (17:18→18:15)
[2025-01-28] MEDS: Potassium Chloride Packet 20 MEQ PACKET 40 MEQ PO (17:19)
[2025-01-28 17:50] LABS: Appearance Urine Cloudy; Glucose Urine UA >=1000 mg/dL (Negative); PH 5.5 (5.0-9.0); Specific Gravity - Urine 1.020 (1.005-1.025); UMIC TRIGGER UACC YES
[2025-01-28 18:02] LABS: Cannabinoid Screen Urine Not Detected (Not Detect)
--- NOTE | 2025-01-28 18:16 | PC.NURSE ---
pt comes to room 6 in ED at 1630 after two lines established, abx and fluids started by previous RN. vitals - pt tachy 120s, tachypneic in high 20s to 30. BP soft but stable. verbal orders to give PO K, IV K and NS and hold IVP insulin and insulin gtt until K can be rechecked. orders are in for 2 sets of 2 bags each IV K. (4 total). clarified with PA that this is what is wanted. Pt alert, oriented. weak but able to stand and pivot to commode. family at bedside
[2025-01-28 18:17] LABS: Glucose, Whole Blood 378 mg/dL (60-115)
[2025-01-28 18:29] LABS: Reflex Lactate? Lactic Acid Added
[2025-01-28] MEDS: Insulin Regular/NS 100 UNIT/100 ML PLAST..BAG IVCONT (18:33)
--- NOTE | 2025-01-28 19:22 | PC.NURSE ---
pt very difficult IV access. US guided assessed for and incomplete. To start insulin gtt, azithromycin was disconnected and paused. PA notified and OK stop in azithro for insulin and K.
[2025-01-28 19:29] LABS: Glucose, Whole Blood 320 mg/dL (60-115)
--- NOTE | 2025-01-28 19:51 | PC.NURSE ---
Pt being transported at this time with insulin drip, klaus marcial apr. Report called over to Jeremias JOHN in PICU at [facility].
[2025-01-29 07:58] LABS: HBS Num1 0.00 mIU/mL (0-7.99); HBc Num1 0.14 S/CO (0.00-0.79); HBsAGNum1 0.29 S/CO (0.00-0.99); HIV Num 1 0.14 S/CO (0.00-0.99); Hepatitis A Antibody IgM 0.22 Index (0-0.79); Hepatitis B Surface Antigen Negative (Negative); ~HepC Num1 0.22 S/CO (0.00-0.79); ~Hepatitis A Antibody IgM Nonreactive (Nonreactive); ~Hepatitis B Surface Antibody NONREACTIVE (Nonreactive); ~Hepatitis C Antibody Nonreactive (Nonreactive)
== END 2025-01-28 19:55 | disposition short-term general hospital (02) ==
PROVIDERS: Physician Assistant; Emergency Provider Emergency Medicine
DX: E11.10 Type 2 diabetes mellitus with ketoacidosis without coma (principal); J85.0 Gangrene and necrosis of lung; E87.20 Acidosis, unspecified; N39.0 Urinary tract infection, site not specified; R00.0 Tachycardia, unspecified; Z03.818 Encounter for observation for suspected exposure to other biological agents ruled out
CPT/HCPCS: 36415; 71046; 71275; 80053; 80307; 81001; 82010; 82803; 82947; 83605; 83735; 84702; 85007; 85027; 86704; 86706; 86709; 86803; 87040; 87340; 87389; 87637; 93005; 96361; 96365; 96366; 96367; 96375; 99285; 99291; J0456; J0696; J3480; Q9967

== ENCOUNTER → 2025-01-28 15:05 | Outpatient (BNV) | payer BC, SELFPAY | PROVIDERS: Emergency Provider Emergency Medicine; Visit Provider Radiology Diagnostic Radiology | DX: R91.8 Other nonspecific abnormal finding of lung field (principal); R06.00 Dyspnea, unspecified | CPT/HCPCS: 71046; 71275 ==

== ENCOUNTER → 2025-01-28 15:22 | Outpatient (BNV) | payer BC, SELFPAY | PROVIDERS: Emergency Provider Emergency Medicine; Visit Provider Internal Medicine Cardiovascular Disease | DX: R00.0 Tachycardia, unspecified (principal); I44.0 Atrioventricular block, first degree; I51.7 Cardiomegaly | CPT/HCPCS: 93010 ==